=== PATIENT | male | born 1975 | race Caucasian/White ===

== ENCOUNTER 2021-05-04 20:57 | Emergency (ER) | payer SELFPAY ==
[~2021-05-04] VITALS: Ht 190.5 cm; Wt 90.7 kg
[2021-05-04] MEDS ORDERED: LIDOCAINE 1% HCL (LOCAL ANESTH.) INJ 20ML MDV IJ ONE (23:00)
[2021-05-04] MEDS ORDERED: cefTRIAXone SOD 1,000 MG VL IM ONE (23:00)
[2021-05-04] MEDS ORDERED: TETANUS-DIPTH-ACEL PERTUSSIS 0.5ML SYR Tdap IM ONE (23:00)
[2021-05-04] MEDS ORDERED: IBUPROFEN 800 MG TAB PO ONE (23:00)
[2021-05-04] MEDS ORDERED: ACETAMINOPHEN 500 MG TAB PO ONE (23:00)
[2021-05-04 23:36] VITALS: BP 147/89
[2021-05-04] MEDS ORDERED: NEOMYCIN-BACITRACIN-POLYM UNITDOSE PKG TOP OINT TOP ONE (23:45)
== END 2021-05-05 04:37 | disposition home or self-care (01) ==
LOC: ER 20:57
DX: S67.194A Crushing injury of right ring finger, initial encounter (principal); L03.011 Cellulitis of right finger; X58.XXXA Exposure to other specified factors, initial encounter; Y93.89 Activity, other specified; Y92.89 Other specified places as the place of occurrence of the external cause; Y99.8 Other external cause status
CPT/HCPCS: 10060; 73140; 90471; 90715; 96372; 99284; J0696; J2001